=== PATIENT | male | born 1995 | race Caucasian/White ===

== ENCOUNTER 2021-06-18 08:39 | Emergency (ER) | payer OTHER, SELFPAY ==
[2021-06-18 08:40] VITALS: BP 148/87; PULSE 80; RESP 20; TEMP 36.8; O2SAT 97; BMI 27.7
[2021-06-18 09:00] VITALS: BP 156/89; PULSE 78; RESP 16; O2SAT 98
--- NOTE | 2021-06-18 09:03 | PC.NURSE ---
Contacted Dr. Mahoney about pt
--- NOTE | 2021-06-18 09:07 | PC.NURSE ---
Addendum entered by Katia Navarrete RN 06/18/21 09:11: Speaking to Dr. Abel at this time Original Note: Dr. Mahoney out of town, referred to DMD
--- NOTE | 2021-06-18 09:13 | [facility].EDGENADL ---
ED Disposition Clinical Impression: Laceration Tooth avulsion Qualifiers: Encounter type: initial encounter Qualified Code(s): S03.2XXA - Dislocation of tooth, initial encounter Disposition: Home, Self-Care Condition on Discharge: Good Instructions: DI for Laceration Repair Additional Instructions: Please follow-up with Dr. Lr's clinic today. Take antibiotics as directed. Okay to take Tylenol, Motrin as needed for pain. Sutures are absorbable and will dissolve within the next week to 10 days. Return to ED with new, worsening, concerning symptoms. Prescriptions: Amoxicillin/Potassium Clav [Amox-Clav 875-125 mg Tablet] 1 tab PO BID 10 Days #20 tab Transmission Status: Pending to [id number] Referrals: Brant Miller [Primary Care Provider] - Tulio Schwab [Referring] - - Critical Care Critical Care Time: No Attestation: On , the high probability of a clinically significant, sudden or life threatening deterioration of the following system(s) required my full and direct attention, intervention and personal management. The time I documented below is in addition to time spent performing reported procedures but includes the following listed in this critical care notation. Medical Decision Making - Medical Records Medical records reviewed: Yes: I reviewed the patient's medical records. - Andreas Inquiry Pt receiving controlled substance: No Vital Signs: 06/18/21 08:40 06/18/21 09:00 Temperature 98.3 F Temperature Source Oral Pulse Rate 78 Pulse Rate [Left Radial] 80 Respiratory Rate 20 16 Blood Pressure 156/89 H Blood Pressure [Right Arm] 148/87 H Blood Pressure Mean 102 Blood Pressure Mean [Right Arm] 107 Blood Pressure Source [Right Arm] Automatic Cuff Blood Pressure Position [Right Arm] Sitting 02 Sat by Pulse Oximetry 97 98 Oxygen Delivery Method Room Air Orders (Tests/Meds): ED MEDICATIONS Discontinued Medications Generic Name Dose Route Start Last Admin Trade Name Freq PRN Reason Stop Dose Admin Acetaminophen 500 mg 06/18/21 08:56 06/18/21 09:14 Acetaminophen 500mg Tab PO 06/18/21 08:57 500 mg ONCE ONE Administration Oxycodone HCl 5 mg 06/18/21 08:57 06/18/21 09:19 Oxycodone 5mg Immediate Release Tablet PO 06/18/21 08:58 5 mg ONCE ONE Administration Tetanus/Diphtheria Toxoids 0.5 ml 06/18/21 08:57 06/18/21 09:12 Tetanus-Diphth Toxoid, Adult 0.5ml Syr IM 06/18/21 08:58 0.5 ml .ONCE ONE Administration ORDERS Category Date Time Status CT facial bones wo con Stat Cat Scan 06/18/21 09:22 Taken - CT Data CT Scan: Other Time Received: 10:[address] Reviewed: Yes: I have reviewed the patient's CT results Findings Narrative: INDINGS: There is moderate mucoperiosteal thickening in the maxillary sinuses. There is mild mucoperiosteal thickening in the sphenoid sinus. There is an absent left lower incisor. There is no fracture. The TMJs are intact. There are no air-fluid levels. IMPRESSION: No acute fracture. Absent left lower incisor. Reviewed, Interpreted and Dictated by Danny Jacob MD Transcribed by Adrien Kendall Authenticated by Danny Jacob MD on 06/18/2021 10:01:00 AM [facility] Decision Narrative: 26-year-old male with no prior past medical history presenting to the ED with lip laceration, jaw pain after work injury. Differential diagnoses include laceration, condyle fracture, mandibular dislocation, tooth avulsion. Given this work-up will include Panorex, physical exam, laceration repair. Labs not indicated. Vital signs are stable, as needed oxycodone for pain, Tylenol. Stated tetanus shot. Spoke with on-call dentist who would recommend not replacing tooth as he has high risk for developing dental abscess, will wash this area out and have close follow-up with dentistry. Repaired laceration, no evidence of facial fracture or mandibular fracture on CT face. Will discharge wit
--- NOTE | 2021-06-18 09:22 | CT_ITS ---
FINAL REPORT CLINICAL HISTORY: maloclusion. METAL TOOL HIT FACE. OPEN WOUND ON LEFT MANDIBLE. RT MANDIBLE PAIN AND MISALIGNMENT OF BITE. FINDINGS: There is moderate mucoperiosteal thickening in the maxillary sinuses. There is mild mucoperiosteal thickening in the sphenoid sinus. There is an absent left lower incisor. There is no fracture. The TMJs are intact. There are no air-fluid levels. IMPRESSION: No acute fracture. Absent left lower incisor. Reviewed, Interpreted and Dictated by Danny Jacob MD Transcribed by Adrien Kendall Authenticated by Danny Jacob MD on 06/18/2021 10:01:00 AM [facility]
[2021-06-18 10:16] VITALS: BP 135/74; PULSE 78; RESP 16; TEMP 36.6; O2SAT 98
== END 2021-06-18 10:18 | disposition home or self-care (01) ==
PROVIDERS: Emergency Provider Emergency Medicine; PCP Physician Assistant
DX: S03.2XXA Dislocation of tooth, initial encounter (principal); S01.511A Laceration without foreign body of lip, initial encounter; W22.8XXA Striking against or struck by other objects, initial encounter; Y92.69 Other specified industrial and construction area as the place of occurrence of the external cause; Y99.0 Civilian activity done for income or pay; Z23 Encounter for immunization
CPT/HCPCS: 12052; 70486; 90714; 99284